=== PATIENT | female | born 1975 | race Hispanic/Latino ===

== ENCOUNTER 2017-10-24 20:44 | Emergency (ER) | payer MEDICARE, BC ==
[2017-10-24] MEDS ORDERED: HYDROmorphone 2 mg/ml ISec IVP STA (20:59)
[2017-10-24 21:12] LABS: BASO # 0.02 K/mm3 (0.0-2.0); BASO % 0.2 % (0.0-3.0); EOS # 0.1 (0.0-0.7); EOS % 0.7 % (1.5-5.0); GRAN # 9.01 (1.4-6.5); GRAN % 76.8 % (50.0-68.0); HEMOGLOBIN 12.8 g/dL (12.0-16.0); LYMPH # 1.9 (1.2-3.4); LYMPH % 16.6 % (22.0-35.0); MEAN CORPUSCULAR HEMOGLOBIN 32.1 pg (25.0-35.0); MEAN CORPUSCULAR HGB CONC 33.8 g/dl (31.0-37.0); MEAN PLATELET VOLUME 9.6 fl (7.0-11.0); MONO # 0.7 (0.1-0.6); MONO % 5.7 % (1.0-6.0); RBC 3.99 10^6/uL (3.5-6.1); RED CELL DISTRIBUTION WIDTH 13.1 % (11.5-14.5); WHITE BLOOD COUNT 11.7 10^3/ul (4.5-11.0)
[2017-10-24 21:19] LABS: ALB/GLOB RATIO 1.3 (1.1-1.8); ALBUMIN 4.6 g/dL (3.0-4.8); ALT/SGPT 32 U/L (7-56); AST/SGOT 61 U/L (14-36); BLOOD UREA NITROGEN 15 mg/dL (7-21); CALCIUM 10.1 mg/dL (8.4-10.5); GFR AFRICAN-AMERICAN > 60; GFR NON-AFRICAN AMERICAN > 60
[2017-10-24 21:20] LABS: INR 1.03 (0.93-1.08); PARTIAL THROMBOPLASTIN TIME 32.4 Seconds (25.1-36.5); PROTHROMBIN TIME 11.7 SECONDS (9.4-12.5)
[2017-10-24 21:31] LABS: TROPONIN I < 0.01 ng/mL
--- NOTE | 2017-10-24 21:35 | ED PDOC ---
Arrival/HPI - General Chief Complaint: Chest Pain Time Seen by Provider: 10/24/17 20:44 Historian: Patient - History of Present Illness Narrative History of Present Illness (Text): 10/24/17 21:33 A 41 year old female, with no significant past medical history, presents to the emergency department complaining of chest and back pain radiating to the back that began this evening. She describes the chest discomfort as tightness. The patient denies fevers, chills, headache, dizziness, shortness of breath, dyspnea on exertion, cough, nausea, vomiting, diarrhea, neck pain, urinary/ bowel changes, or any other complaint. PMD: Dr. Ashely Stewart Time/Duration: Other (This evening) Symptom Onset: Sudden Symptom Course: Unchanged Activities at Onset: Rest, Light Context: Home Past Medical History - Provider Review Nursing Documentation Reviewed: Yes - Infectious Disease Hx of Infectious Diseases: None - Tetanus Immunization Tetanus Immunization: Up to Date, Unknown - Cardiac Hx Congestive Heart Failure: Yes Hx Hypertension: Yes Other/Comment: AAA. aortic dissection. carotid dissection - Pulmonary Hx Asthma: Yes - Psychiatric Hx Depression: No Hx Emotional Abuse: No Hx Physical Abuse: No Hx Substance Use: No - Surgical History Hx Abdominal Aortic Aneurysm Repair: Yes Hx Open Heart Surgery: Yes (aortic arch repair) Hx Tubal Ligation: Yes - Anesthesia Hx Anesthesia: Yes Hx Anesthesia Reactions: No Hx Malignant Hyperthermia: No - Suicidal Assessment Feels Threatened In Home Enviroment: No Family/Social History - Physician Review Nursing Documentation Reviewed: Yes Family/Social History: No Known Family HX Smoking Status: Never Smoked Hx Alcohol Use: Yes Frequency of alcohol use: Socially Hx Substance Use: No Hx Substance Use Treatment: No Allergies/Home Meds Allergies/Adverse Reactions: Allergies Penicillins Allergy (Verified 10/24/17 20:47) RASH Sulfa (Sulfonamide Antibiotics) Allergy (Verified 10/24/17 20:47) RASH Home Medications: Home Meds Medication Instructions Recorded Confirmed Aspirin [Aspir 81] 81 mg PO DAILY 10/23/12 10/24/17 Ascorbic Acid [Vitamin C] 2,000 mg PO DAILY 10/24/17 10/24/17 Atenolol [Tenormin] 50 mg PO BID 10/24/17 10/24/17 L.acidoph,Paracasei, B.lactis 1 mg PO DAILY 10/24/17 10/24/17 [Probiotic] Multivitamin/Iron/Folic Acid 1 tab PO DAILY 10/24/17 10/24/17 [Centrum Women Tablet] Pantoprazole Sodium [Protonix] 40 mg PO DAILY 10/24/17 10/24/17 amLODIPine [Norvasc] 2.5 mg PO BID 10/24/17 10/24/17 clonazePAM [Klonopin] 1 mg PO BID 10/24/17 10/24/17 valACYclovir [Valtrex] 1 gm PO DAILY 10/24/17 10/24/17 Review of Systems - Physician Review All systems were reviewed & negative as marked: Yes - Review of Systems Constitutional: absent: Fevers, Night Sweats Cardiovascular: Chest Pain Gastrointestinal: Abdominal Pain. absent: Stool Changes, Diarrhea, Nausea, Vomiting Genitourinary Female: absent: Urine Output Changes Musculoskeletal: absent: Neck Pain Neurological: absent: Headache, Dizziness Physical Exam Vital Signs Reviewed: Yes Vital Signs Temp Pulse Resp BP Pulse Ox 10/24/17 23:17 98 F 66 19 118/64 100 10/24/17 22:22 75 19 119/55 L 100 10/24/17 21:26 77 18 138/75 100 10/24/17 20:56 98.1 F 10/24/17 20:55 82 16 144/68 95 Temperature: Afebrile Blood Pressure: Normal Pulse: Regular Respiratory Rate: Normal Appearance: Positive for: Well-Appearing, Non-Toxic, Comfortable Pain Distress: None Mental Status: Positive for: Alert and Oriented X 3 - Systems Exam Head: Present: Atraumatic, Normocephalic Pupils: Present: PERRL Extroacular Muscles: Present: EOMI Conjunctiva: Present: Normal Mouth: Present: Moist Mucous Membranes Neck: Present: Normal Range of Motion Respiratory/Chest: Present: Clear to Auscultation, Good Air Exchange. No: Respiratory Distress, Accessory Muscle Use Cardiovascular: Present: Regular Rate and Rhythm, Normal S1, S2. No: Murmurs Abdomen: Present: Normal Bowel Sounds. No: Tenderness, Distention, Peritoneal Signs Back: Present: Normal Inspection Upper Extremity: Present: Normal Inspection, NORMAL PULSES. No: Cyanosis, Edema Lower Extremity: Present: Normal Inspection, NORMAL PULSES. No: Edema Neurological: Present: GCS=15, CN II-XII Intact, Speech Normal Skin: Present: Warm, Dry, Normal Color. No: Rashes Psychiatric: Present: Alert, Oriented x 3, Normal Insight, Normal Concentration Medical Decision Making ED Course and Treatment: 10/24/17 21:34 Impression: A 41 year old female presents to the emergency department with a complaint of chest and abdominal pain radiating to her back that began this evening. Plan: -- EKG -- Chest, Abdomen, Pelvis/ Angio CT -- Urinalysis -- Labs -- Dilaudid -- Reassess and disposition Progress Notes: EKG: Ordered, reviewed, and independently interpreted the EKG. Rate : 77 BPM Rhythm : NSR Interpretation : CT Chest With Intravenous Contrast Dictated and Authenticated by: Miguelito Lopez MD 10/24/2017 10:16 PM Eastern Time ([place] & [place]) IMPRESSION: 1. There is dissection of the thoracic aorta, with involvement of the aortic arch and descending thoracic aorta. This is consistent with a DeBakey type I dissection. 2. 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 3. Dependent groundglass density infiltrates are seen within both lower lobes. 4. Incidental/non-acute findings are described above. CT Abdomen and Pelvis With Intravenous Contrast EXAM DATE/TIME: 10/24/2017 8:59 PM Dictated and Authenticated by: Miguelito Lopez MD 10/24/2017 10:16 PM Eastern Time ([place] & [place]) IMPRESSION: 1. There is dissection of the abdominal aorta, which extends into the left common iliac artery. 2. There is diffuse heterogeneous density of the liver, suggestive of diffuse hepatocellular disease or hepatic venous congestion. Correlation with the hepatic serum profile is recommended. 3. The stomach is distended. 4. Hypodense follicles or small cysts are visualized within the bilateral ovaries. 5. Incidental/non-acute findings are described above. 10/24/17 23:12: Case discussed with Dr. Murphy, cardiothoracic surgeon, at [facility]. Accepts patient to her service. Pending transfer. 10/24/17 23:54 Based upon the information available at the time of transfer, the medical benefits reasonably expected from the provision of medical treatment at [facility] outweigh the increased risk to the patient for transfer from this facility. I have described the inherent risks and benefits of the transfer to the patient, and patient agrees to transfer. I have spoken to Dr. Murphy who has agreed to accept transfer of the patient and provide further medical treatment at the receiving facility. At the time of transfer, copies of all medical records sent which related to the emergency condition for which the individual presented. These records include observations of signs or symptoms, preliminary clinical impression, treatment provided, results of any completed test and an informed written consent to the transfer. - Lab Interpretations Lab Results: 10/24/17 20:50 10/24/17 20:50 Lab Results 10/24/17 23:00: Urine Color Light yellow, Urine Appearance Clear, Urine pH 6.0, Ur Specific [place] 1.010, Urine Protein Trace H, Urine Glucose (UA) Negative, Urine Ketones Trace H, Urine Blood Negative, Urine Nitrate Negative, Urine Bilirubin Negative, Urine Urobilinogen 0.2, Ur Leukocyte Esterase Trace H, Urine RBC 5 - 10, Urine WBC 10 - 15, Ur Epithelial Cells 4 - 5, Urine Bacteria Small 10/24/17 20:50: Sodium 140, Potassium 3.7, Chloride 102, Carbon Dioxide 28, Anion Gap 14, BUN 15, Creatinine 0.8, Est GFR ( Amer) > 60, Est GFR (Non- Af Amer) > 60, Random Glucose 84, Calcium 10.1, Magnesium 2.0, Total Bilirubin 0.4, AST 61 H, ALT 32, Alkaline Phosphatase 49, Lactate Dehydrogenase 468, Total Creatine Kinase 35, Troponin I < 0.01, Total Protein 8.2, Albumin 4.6, Globulin 3.6, Albumin/Globulin Ratio 1.3 10/24/17 20:50: PT 11.7, INR 1.03, APTT 32.4 10/24/17 20:50: WBC 11.7 H, RBC 3.99, Hgb 12.8, Hct 37.9, MCV 95.0, MCH 32.1, MCHC 33.8, RDW 13.1, Plt Count 267, MPV 9.6, Gran % 76.8 H, Lymph % (Auto) 16.6 L, [place] % (Auto) 5.7, Eos % (Auto) 0.7 L, Baso % (Auto) 0.2, Gran # 9.01 H, Lymph # (Auto) 1.9, [place] # (Auto) 0.7 H, Eos # (Auto) 0.1, Baso # (Auto) 0.02 I have reviewed the lab results: Yes - RAD Interpretation Radiology Orders: 10/24/17 20:59 ANGIOGRAPHY DISECTION PROTOCOL [CT] Stat - EKG Interpretation Interpreted by ED Physician: Yes Type: 12 lead EKG - Medication Orders Current Medication Orders: Discontinued Medications Diphenhydramine HCl (Benadryl) 25 mg IVP ONCE ONE Stop: 10/24/17 21:53 Last Admin: 10/24/17 21:56 Dose: 25 mg IVP Administration Document 10/24/17 21:56 RD (Rec: 10/24/17 21:56 RD [id number]) Charges for Administration # of IVP Administrations 1 Hydromorphone HCl (Dilaudid) 2 mg IVP STAT STA Stop: 10/24/17 21:00 Last Admin: 10/24/17 21:05 Dose: 2 mg MAR Pain Assessment Document 10/24/17 21:05 RD (Rec: 10/24/17 21:29 RD [id number]) Pain Reassessment Is this a pain reassessment? No Sleep Is patient sleeping during reassessment? No Presence of Pain Presence of Pain Yes Location Upper or Lower Upper Pain Location Body Site Abdomen Description Description Burning Pain Behavior Moaning Crying Guarding Irritability IVP Administration Document 10/24/17 21:05 RD (Rec: 10/24/17 21:29 RD [id number]) Charges for Administration # of IVP Administrations 1 - Scribe Statement The provider has reviewed the documentation as recorded by the Chelsey Marin Provider Scribe Attestation: All medical record entries made by the Scribtiffanie were at my direction and personally dictated by me. I have reviewed the chart and agree that the record accurately reflects my personal performance of the history, physical exam, medical decision making, and the department course for this patient. I have also personally directed, reviewed, and agree with the discharge instructions and disposition. Disposition/Present on Arrival - Present on Arrival Any Indicators Present on Arrival: No History of DVT/PE: No History of Uncontrolled Diabetes: No Urinary Catheter: No History of Decub. Ulcer: No History Surgical Site Infection Following: None - Disposition Have Diagnosis and Disposition been Completed?: Yes Diagnosis: Aortic dissection Disposition: Trans to Other Acute Care Hosp Disposition Time: 23:15 Condition: SERIOUS Referrals: Ortega Stewart JD, MD [Primary Care Provider] - Follow up with primary Forms: [employer] ([place])
[2017-10-24 21:36] VITALS: O2SAT 100
[2017-10-24] MEDS ORDERED: DiphenhydrAMINE 50 mg/ml Inj IVP ONE (21:52)
--- NOTE | 2017-10-24 22:16 | CT ---
EXAM: CT Chest With Intravenous Contrast CLINICAL HISTORY: The patient age is 41 years old and is female; Pain; Abdominal pain; Chest pain; Prior surgery; Surgery type: Aaa repair Facility exam id and description: Ct angiodisec angiography disection protocol TECHNIQUE: Axial computed tomography images of the chest with intravenous contrast during the arterial phase of enhancement. All CT scans at this facility use one or more dose reduction techniques, viz.: automated exposure control; ma/kV adjustment per patient size (including targeted exams where dose is matched to indication; i.e. head); or iterative reconstruction technique. Coronal and sagittal reformatted images were created and reviewed. CONTRAST: 141 mL of OMNI 350 administered intravenously. COMPARISON: No relevant prior studies available. FINDINGS: Pulmonary arteries: The main pulmonary trunk, right/left main pulmonary arteries, and the proximal lobar branches demonstrate no definite intraluminal filling defect to suggest pulmonary embolism. Aorta: There is dissection of the thoracic aorta, with involvement of the aortic arch and descending thoracic aorta. This is consistent with a DeBakey type I dissection. Great vessels of aortic arch: Artifact limits evaluation of the left common carotid artery. 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 Lungs: Dependent groundglass density infiltrates are seen within both lower lobes. There is mild focal thickening along the right pulmonary fissure on series 3 image 47. No mass. Pleural space: No significant effusion. No pneumothorax. Heart: No cardiomegaly. No significant pericardial effusion. No evidence of RV dysfunction. Mediastinum: Pectus carinatum is visualized. Bones/joints: Sternotomy wires are identified. Soft tissues: There are bilateral breast prostheses. Lymph nodes: No enlarged lymph nodes. IMPRESSION: 1. There is dissection of the thoracic aorta, with involvement of the aortic arch and descending thoracic aorta. This is consistent with a DeBakey type I dissection. 2. 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 3. Dependent groundglass density infiltrates are seen within both lower lobes. 4. Incidental/non-acute findings are described above. EXAM: CT Abdomen and Pelvis With Intravenous Contrast EXAM DATE/TIME: 10/24/2017 8:59 PM CLINICAL HISTORY: The patient age is 41 years old and is female; Pain; Abdominal pain; Chest pain; Prior surgery; Surgery type: Aaa repair Facility exam id and description: Ct angiodisec angiography disection protocol TECHNIQUE: Axial computed tomography images of the abdomen and pelvis with intravenous contrast. All CT scans at this facility use one or more dose reduction techniques, viz.: automated exposure control; ma/kV adjustment per patient size (including targeted exams where dose is matched to indication; i.e. head); or iterative reconstruction technique. Coronal and sagittal reformatted images were created and reviewed. CONTRAST: 141 mL of OMNI 350 administered intravenously. COMPARISON: No relevant prior studies available. FINDINGS: ABDOMEN: Liver: There is diffuse heterogeneous density of the liver, suggestive of diffuse hepatocellular disease or hepatic venous congestion. Gallbladder and bile ducts: No calcified stones. No ductal dilation. Pancreas: Normal contour, without acute peripancreatic stranding. Spleen: A small splenule is visualized. Adrenals: No mass. Kidneys and ureters: No hydronephrosis. No solid mass. Stomach and bowel: The stomach is distended. There is significant fecal material within the colon. Appendix: No findings to suggest acute appendicitis. PELVIS: Bladder: No mass. Reproductive: Hypodense follicles or small cysts are visualized within the bilateral ovaries. ABDOMEN and PELVIS: Intraperitoneal space: No free air. Bones/joints: Facet arthropathy is visualized within the lower lumbar spine. A transitional vertebral body is identified at the lumbosacral junction. Vasculature: There is dissection of the abdominal aorta, which extends into the left common iliac artery. There is absence of normal enhancement of the inferior vena cava, iliac and visualized femoral veins, likely due to the timing of injection. Patency of these vessels cannot be confirmed. Lymph nodes: No enlarged lymph nodes. IMPRESSION: 1. There is dissection of the abdominal aorta, which extends into the left common iliac artery. 2. There is diffuse heterogeneous density of the liver, suggestive of diffuse hepatocellular disease or hepatic venous congestion. Correlation with the hepatic serum profile is recommended. 3. The stomach is distended. 4. Hypodense follicles or small cysts are visualized within the bilateral ovaries. 5. Incidental/non-acute findings are described above.
[2017-10-24 22:23] VITALS: RESP 19
[2017-10-24 23:22] VITALS: BP 118/64; PULSE 66; TEMP 98
[2017-10-24 23:32] LABS: URINE BILIRUBIN NEGATIVE (NEGATIVE); URINE BLOOD NEGATIVE (NEGATIVE); URINE GLUCOSE (UA) NEGATIVE (NEGATIVE); URINE LEUKOCYTE ESTERASE TRACE Leu/uL (NEGATIVE); URINE PROTEIN TRACE mg/dL (<30 mg/dL); URINE UROBILINOGEN 0.2 E.U./dL (<1 E.U./dL)
[2017-10-24 23:34] LABS: URINE APPEARANCE CLEAR (CLEAR); URINE COLOR LIGHT YELLOW (YELLOW)
[2017-10-25 00:01] LABS: URINE BACTERIA SMALL (NEG)
--- NOTE | 2017-10-25 10:55 | CARD ---
APPROVED REPORT EKG Measurement Heart [id number] <Conclusion> Normal sinus rhythm Low voltage QRS limb leads NSSTW changes
== END 2017-10-24 23:17 | disposition short-term general hospital (02) ==
LOC: ED 20:44
DX: I71.01 Dissection of thoracic aorta (principal); I50.9 Heart failure, unspecified; I10 Essential (primary) hypertension
CPT/HCPCS: 71275; 74175; 80053; 81001; 82550; 83615; 83735; 84484; 85025; 85610; 85730; 87086; 93005; 96374; 96375; 99284; J1170; J1200